=== PATIENT | female | born 1955 | race African-American/Black ===

== ENCOUNTER 2021-12-15 09:27 | Emergency (ER) | payer OTHER ==
[~2021-12-15] VITALS: Ht 160 cm; Wt 111.3 kg
[2021-12-15 10:32] LABS: Basophils # (auto) 0.1 10 ^3/uL (0-0.2); Basophils % (auto) 1.1 % (0.0-2.0); Eosinophils # (auto) 0.4 10 ^3/uL (0-0.8); Eosinophils % (auto) 5.7 % (0.0-7.0); Hematocrit 38.5 % (36.0-46.0); Hemoglobin 12.5 g/dL (12.2-16.2); Lymphocytes % (auto) 30.4 % (10.0-50.0); Mean Corpuscular Hemoglobin 28.6 pg (28.0-32.0); Mean Corpuscular Hgb Conc. 32.5 g/dL (32.0-36.0); Mean Corpuscular Volume 87.9 fL (80.0-100.0); Monocytes # (auto) 0.4 10 ^3/uL (0-1.3); Monocytes % (auto) 6.6 % (0.0-12.0); Neutrophils # (auto) 3.7 10 ^3/uL (1.6-8.6); Neutrophils % (auto) 56.2 % (37.0-80.0); Nucleated Red Blood Cells % 0.1 %; Red Blood Cells 4.38 10^6/uL (4.0-5.20); White Blood Cell 6.7 10^3/uL (4.4-10.8)
[2021-12-15 10:54] LABS: Albumin 3.8 g/dL (3.4-5.0); Calcium 9.6 mg/dL (8.5-10.1); Potassium 4.4 mmol/L (3.5-5.1)
[2021-12-15 10:58] LABS: BUN/Creatinine Ratio 14.5; Bilirubin, Total 0.5 mg/dL (0.2-1.0); Total Protein 7.4 g/dL (6.4-8.2)
[2021-12-15 12:38] LABS: Amphetamine Screen, Urine NEGATIVE (NEGATIVE); Barbiturate Scree,Urine NEGATIVE (NEGATIVE); Benzodiazephine Screen, Urine NEGATIVE (NEGATIVE); Cannabinoid Screen, Urine NEGATIVE (NEGATIVE); Cocaine Screen, Urine NEGATIVE (NEGATIVE); Phencyclidine Screen, Urine NEGATIVE (NEGATIVE)
[2021-12-15 12:47] LABS: Opiate Scree,Urine POSITIVE (NEGATIVE)
[2021-12-15 13:00] LABS: Urine Bacteria NONE SEEN /hpf (None Seen); Urine Blood Negative /uL (Negative); Urine Hyaline Cast FEW /lpf (0 - 2); Urine Specific Gravity 1.031 (1.001-1.035); Urine WBC 2 /hpf (0 - 5)
[2021-12-15 16:13] VITALS: BP 143/75
== END 2021-12-15 16:17 | disposition home or self-care (01) ==
LOC: ER 09:27
DX: R10.84 Generalized abdominal pain (principal); R55 Syncope and collapse; I10 Essential (primary) hypertension; E11.9 Type 2 diabetes mellitus without complications; Z88.8 Allergy status to other drugs, medicaments and biological substances
CPT/HCPCS: 36415; 70450; 74176; 80053; 80307; 81001; 83690; 85025; 93005

== ENCOUNTER 2024-03-21 05:37 | Inpatient (IN) | payer OTHER ==
[~2024-03-21] VITALS: Ht 170.2 cm; Wt 177.1 kg
--- NOTE | 2024-03-21 06:29 | ED.PDOC ---
Musculoskeletal HPI Comments 68 year old female ERICA presents to the ED with chief complaint of right leg pain and swelling. Patient reports that at around 12am, she begun to experiencing right leg swelling and pain. Patient relays that her right leg is noticeably more swollen than her left leg. Patient states she is normally able to walk on her own with a cane, but with the swelling and pain she is now unable to. Patient denies any numbness, weakness, fever, chills, chest pain, or SOB. Chief Complaint: Lower Extremity Time Seen by MD: 06:24 Primary Care Provider: Joy Bartholomew Notes: Nurses Notes, Assessor Notes, Medications, Allergies Allergies: Coded Allergies: Acetaminophen (Verified Allergy, Unknown, 12/15/21) CI Pigment Blue 63 (Verified Allergy, Unknown, 12/15/21) Carbamazepine (Verified Allergy, Unknown, 12/15/21) Duloxetine (Verified Allergy, Unknown, 12/15/21) Hydrocodone (Verified Allergy, Unknown, 12/15/21) Information Source: Patient, Emergency Med Personnel Mode of Arrival: EMS Location: Right Extremity Location: Leg Timing: Hours Prehospital treatment: None Severity: Moderate Able to Move Extremity: Yes Bear Weight: No Pain: Moderate Mechanism: Spontaneous Circumstances: Spontaneous Onset of Symptoms: Spontaneous Symptoms: Swelling, Pain DVT Risk Factors: NONE Last Tetanus: Unknown Past Medical History PAST MEDICAL HISTORY: DM, HTN Surgical History (Other): Nerve stimulator implant EMERGENCY MANAGEMENT DIRECTOR History: No Pertinent EMERGENCY MANAGEMENT DIRECTOR History Family History Family History: Reviewed,noncontributory to illness Social History Smoker: Non-Smoker Alcohol: Denies ETOH Use Drugs: Denies Drug Use Lives In: Home Constitutional: denies: chills, diaphoresis, fatigue, fever, malaise, sweats, weakness, others EENTM: denies: blurred vision, double vision, ear bleeding, ear discharge, ear drainage, ear pain, ear ringing, eye pain, eye redness, hearing loss, mouth pain, mouth swelling, nasal discharge, nose bleeding, nose congestion, nose pain, photophobia, tearing, throat pain, throat swelling, voice changes, others Respiratory: denies: cough, hemoptysis, orthopnea, SOB at rest, shortness of breath, SOB with excertion, stridor, wheezing, others Cardiovascular: reports: edema (Rt leg); denies: chest pain, dizzy spells, diaphoresis, Dyspnea on exertion, irregular heart beat, left arm pain, lightheadedness, palpitations, PND, syncope, others Gastrointestinal: denies: abdomen distended, abdominal pain, blood streaked bowels, constipated, diarrhea, dysphagia, difficulty swallowing, hematemesis, melena, nausea, poor appetite, poor fluid intake, rectal bleeding, rectal pain, vomiting, others Genitourinary: denies: abnormal vagina bleeding, burning, dyspareunia, dysuria, flank pain, frequency, hematuria, incontinence, pain, , vagina discharge, urgency, others Neurological: denies: dizziness, fainting, headache, left sided numbness, left sided weakness, numbness, paresthesia, pre-existing deficit, right sided numb ness, right sided weakness, seizure, speech problems, tingling, tremors, weakness, others Musculoskeletal: reports: others (Rt leg pain); denies: back pain, gout, joint pain, joint swelling, muscle pain, muscle stiffness, neck pain Integumetry: denies: bruises, change in color, change in hair/nails, dryness, laceration, lesions, lumps, rash, wounds, others Allergic/Immunocompromised: denies: Difficulty Healing, Frequent Infections, Hives, Itching, others Hematologic/Lymphatic: denies: anemia, blood clots, easy bleeding, easy bruising, swollen glands, others Endocrine: denies: excessive hunger, excessive sweating, excessive thirst, excessive urination, flushing, intolerance to cold, intolerance to heat, unexplained weight gain, unexplained weight loss, others Psychiatric: denies: anxiety, bipolar disorder, depression, hopeless, panic disorder, schizophrenia, sleepless, suicidal, others All Other Systems: Reviewed and Negative Physical Exam General Appearance: Moderate Distress, Normal HEENT: Normal ENT Inspection, PERRL/EOMI Neck: Full Range of Motion, Non-Tender, Normal, Normal Inspection Respiratory: Chest Non-Tender, Lungs Clear, No Accessory Muscle Use, No Respiratory Distress, Normal Breath Sounds Cardiovascular: No Edema, No JVD, No Murmur, No Gallop, Normal Peripheral Pulses, Regular Rate/Rhythm Breast Exam: Deferred Gastrointestinal: No Organomegaly, Non Tender, No Pulsatile Mass, Normal Bowel Sounds, Soft Genitalia: Deferred Pelvic: Deferred Rectal: Deferred Extremities: No calf tenderness, Normal capillary refill, Normal range of motion, Non-tender, Swelling (Right lower extremity) Musculoskeletal : Apperance: Normal Neurologic: Alert, silk screen printer machine II-XII nml as Tested, No Motor Deficits, Normal Affect, Normal Mood, No Sensory Deficits Cerebellar Function: NOT DONE Reflexes: NOT DONE Skin: Dry, Normal Color, Warm Peripheral Pulses: 3+ Radial (R), 3+ Radial (L) Lymphatic: No Adenopathy Was a procedure done? Was a procedure done?: No Differential Diagnosis EXT Differential Diagnosis: Deep Vein Thrombosis, Strain X-Ray, Labs, Meds, VS Vital Signs Date Time Temp Pulse Resp B/P (MAP) Pulse Ox O2 Delivery O2 Flow Rate FiO2 03/21/24 07:47 97.6 96 18 138/82 (100) 95 97.6 03/21/24 07:47 96 18 95 Room Air 03/21/24 05:37 98.4 97 16 156/82 (106) 94 Lab Test 03/21/24 06:27 Range/Units White Blood Count 5.6 4.4-10.8 10^3/uL Red Blood Count 4.08 4.0-5.20 10^6/uL Hemoglobin 12.6 12.2-16.2 g/dL Hematocrit 37.6 36.0-46.0 % Mean Corpuscular Volume 92.2 80.0-100.0 fL Mean Corpuscular Hemoglobin 30.9 28.0-32.0 pg Mean Corpuscular Hemoglobin Concent 33.5 32.0-36.0 g/dL Red Cell Distribution Width 14.8 H 11.8-14.3 % Platelet Count 206 140-450 10^3/uL Mean Platelet Volume 10.1 6.9-10.8 fL Neutrophils (%) (Auto) 59.2 37.0-80.0 % Lymphocytes (%) (Auto) 29.6 10.0-50.0 % Monocytes (%) (Auto) 8.0 0.0-12.0 % Eosinophils (%) (Auto) 2.6 0.0-7.0 % Basophils (%) (Auto) 0.6 0.0-2.0 % Neutrophils # (Auto) 3.3 1.6-8.6 10 ^3/uL Lymphocytes # (Auto) 1.7 0.4-5.4 10 ^3/uL Monocytes # (Auto) 0.5 0-1.3 10 ^3/uL Eosinophils # (Auto) 0.1 0-0.8 10 ^3/uL Basophils # (Auto) 0 0-0.2 10 ^3/uL Nucleated Red Blood Cells 0.0 % Sodium Level 139 136-145 mmol/L Potassium Level 4.5 3.5-5.1 mmol/L Chloride Level 104 98-107 mmol/L Carbon Dioxide Level 30 20-31 mmol/L Anion Gap 5 5-15 Blood Urea Nitrogen 12 9-23 mg/dL Creatinine 1.36 H 0.550-1.02 mg/dL Glomerular Filtration Rate Calc 42 >90 mL/min BUN/Creatinine Ratio 8.8 L 10.0-20.0 Serum Glucose 142 H 74-106 mg/dL Calcium Level 10.6 H 8.7-10.4 mg/dL Patient alert. Complaining of right lower extremity swelling. She does use a walker to assist her walking. Vitals stable. Blood pressure slightly elevated. Reviewed her previous visit. Explained to the patient. Continue cardiac monitoring. Rt Lower Ext US: FINDINGS: Right: - Common femoral vein: Compressible - Deep femoral vein: Compressible - Femoral vein: Compressible - Popliteal vein: Compressible - Posterior tibial vein: Waveforms present - Other: Nothing IMPRESSION: No right lower extremity deep venous thrombosis. Images Reviewed?: Images reviewed and evaluated by me Time of 1ST Reevaluation: 07:24 Reevaluation 1ST: Unchanged Patient Education/Counseling: Diagnosis, Treatment Family Education/Counseling: No Family Present Additional Information The following tests were ordered, and results were reviewed by me: BMP, UA, CBC, Rt Lower DVT US I reviewed and agreed with the following test results read by other providers: Rt Lower DVT US I discussed treatment and results with medical personnel. Departure 1 Departure Time of Disposition: 06:58 Impression: Primary Impression: Hypertension Qualified Codes: I10 - Essential (primary) hypertension Disposition: ADMITTED INPATIENT Admit to: Med Surg Condition: Guarded Critical Care Note Critical Care Time?: No Stability Stability form required: No Heart Score Heart Score: Heart Score Response (Comments) Value History N/A 0 EKG N/A 0 Age N/A 0 Risk Factors N/A 0 Troponin N/A 0 Total 0 I personally scribed for ROXANN JEAN-BAPTISTE MD ([email or web address]) on 03/21/24 at 06:29. Electronically submitted by Michael Holbrook ([email or web address]). I personally scribed for ROXANN JEAN-BAPTISTE MD ([email or web address]) on 03/21/24 at 07:20. Electronically submitted by Michael Holbrook ([email or web address]). I personally scribed for ROXANN JEAN-BAPTISTE MD ([email or web address]) on 03/21/24 at 08:58. Electronically submitted by Michael Holbrook ([email or web address]). ROXANN JEAN-BAPTISTE MD Mar 21, 2024 06:29
[2024-03-21 07:02] LABS: Chloride 104 mmol/L (98-107); Potassium 4.5 mmol/L (3.5-5.1); Sodium 139 mmol/L (136-145)
[2024-03-21 07:03] LABS: Anion Gap 5 (5-15); Carbon Dioxide 30 mmol/L (20-31)
[2024-03-21 07:04] LABS: Basophils # (auto) 0 10 ^3/uL (0-0.2); Basophils % (auto) 0.6 % (0.0-2.0); Eosinophils # (auto) 0.1 10 ^3/uL (0-0.8); Eosinophils % (auto) 2.6 % (0.0-7.0); Hematocrit 37.6 % (36.0-46.0); Hemoglobin 12.6 g/dL (12.2-16.2); Lymphocytes # (auto) 1.7 10 ^3/uL (0.4-5.4); Lymphocytes % (auto) 29.6 % (10.0-50.0); Mean Corpuscular Hemoglobin 30.9 pg (28.0-32.0); Mean Corpuscular Hgb Conc. 33.5 g/dL (32.0-36.0); Mean Corpuscular Volume 92.2 fL (80.0-100.0); Monocytes # (auto) 0.5 10 ^3/uL (0-1.3); Neutrophils # (auto) 3.3 10 ^3/uL (1.6-8.6); Neutrophils % (auto) 59.2 % (37.0-80.0); Platelet Count (auto) 206 10^3/uL (140-450); Red Blood Cells 4.08 10^6/uL (4.0-5.20); Red Cell Distribution Width 14.8 % (11.8-14.3); White Blood Cell 5.6 10^3/uL (4.4-10.8)
[2024-03-21 07:08] LABS: BUN/Creatinine Ratio 8.8 (10.0-20.0); Blood Urea Nitrogen 12 mg/dL (9-23)
[2024-03-21 07:12] LABS: Calcium 10.6 mg/dL (8.7-10.4); Glucose 142 mg/dL (74-106)
--- NOTE | 2024-03-21 08:40 | DVH ---
US RT Lower DVT HISTORY: dvct COMPARISON: None TECHNIQUE: Duplex doppler evaluation of the deep venous system of the lower extremity from the common femoral veins, superficial femoral vein, great saphenous vein, deep femoral vein, popliteal vein, an d calf veins, including color doppler and spectral/pulsed waveform analysis, was performed. FINDINGS: Right: - Common femoral vein: Compressible - Deep femoral vein: Compressible - Femoral vein: Compressible - Popliteal vein: Compressible - Posterior tibial vein: Waveforms present - Other: Nothing IMPRESSION: No right lower extremity deep venous thrombosis.
[2024-03-21 09:58] LABS: Urine Bacteria None Seen /hpf (None Seen)
[2024-03-21 10:37] LABS: Urine Blood Negative /uL (Negative); Urine Clarity Clear (Clear); Urine Color Colorless (Yellow); Urine Protein, UAD Negative (Negative); Urine Specific Gravity 1.006 (1.001-1.035); Urine Squamous Epithelial Cell FEW /hpf (<5); Urine Urobilinogen Normal (Negative); Urine WBC 1 /hpf (0 - 5)
--- NOTE | 2024-03-21 13:33 | DVHHP2 ---
History of Present Illness Reason for Visit: Pain on right calf and right foot History of Present Illness Linda Mancini is a 68-year-old female with past medical history of hypertension, diabetes, asthma, COPD, abdominal surgery, neck fusion, lumbar surgery, nerve stimulator implant, bilateral knee surgery greater than 15 years ago, and liver hemangioma over 25 lb that was removed per patient who presents to the ED for right lower extremity swelling, right calf and right foot pain x1 day. Patient reports that the pain is sharp constant and about a 5 to 7/10. Patient states that she was sitting at the dining room table and felt a bite on her right leg but was not sure and states that around 12:00 a.m. this morning she woke up with right lower extremity swelling and right leg pain. She reports that she notice to pick morrow on both her right leg 1 her on her ankle and 1 on her knee. She states that she swatted a bug at the dining room table that evening but was unsure what it was. Patient reports that when she walks and when she relaxes or sits down the pain is still there present, there is no relief with ambulation or rest. With palpation to her right calf and right foot noticeable pain present. Patient reports that she uses a cane for with ambulation. She also states that she is compliant with her medications. Patient denies chest pain, shortness of breath, fever, chills, weakness, dizziness, lightheadedness, nausea, vomiting, and diarrhea. Cardiovascular: HTN Pulmonary: Asthma, COPD Endocrine: Diabetes Past Surgical History: Other Past Surgical History Nerve stimulator implant lower back, bilateral knee surgery greater than 15 years ago, abdominal surgery, neck fusion, and lumbar surgery Family History: DM, Other (Sister) Smoke: No ALCOHOL: none Drugs: None Lives: Alone Domestic Violence: Neg Review of Systems Constitutional: No: Fever, Chills, Sweats, Weakness, Malaise, Other Eyes: No: Pain, Vision change, Conjunctivae inflammation, Eyelid inflammation, Other, Redness ENT: No: Ear pain, Ear discharge, Nose pain, Nose discharge, Nose congestion, Mouth pain, Mouth swelling, Throat pain, Throat swelling, Other Respiratory: No: Cough, Dry, Shortness of breath, SOB with excertion, Wheezing, Hemoptysis, Pleuritic Pain, Sputum, Wheezing, Other Cardiovascular: No: Chest Pain, Palpitations, Orthopnea, Paroxysmal Noc. Dyspnea, Edema, Lt Headedness, Other Gastrointestinal: No: Nausea, Vomiting, Abdominal Pain, Diarrhea, Constipation, Melena, Hematochezia, Other Genitourinary: No Dysuria, No Frequency, No Incontinence, No Hematuria, No Retention, No Other Musculoskeletal: leg pain, foot pain; No: other, neck pain, shoulder pain, arm pain, back pain, hand pain Skin: Other (2 noticeable birthmarks on right anterior knee and another on the left medial ankle); No: Rash, Lesions, Jaundice, Bruising Neurological: No: Weakness, Numbness, Incoordination, Change in speech, Confusion, Seizures, Other Allergies: Coded Allergies: FD&C Blue #2 (Indigotine) (Verified Allergy, Unknown, 12/15/21) Exam Vital Signs Vital Signs Date Time Temp Pulse Resp B/P (MAP) Pulse Ox O2 Delivery O2 Flow Rate FiO2 03/21/24 12:29 91 16 137/68 (91) 98 03/21/24 10:31 97.6 97.6 03/21/24 07:47 Room Air General Appearance: Alert, Oriented X3, Cooperative, No acute distress HEENT: Atraumatic, PERRLA, EOMI, Mucous membr. moist/pink Respiratory: Clear to auscultation, Normal air movement Cardiovascular: Regular rate, Normal S1, Normal S2, No murmurs Abdominal: Normal bowel sounds, Soft, No tenderness, No hepatospenomegaly, No masses Extremities: No clubbing, No cyanosis, Normal pulses Skin: No rashes, No breakdown, No significant lesion Neuro: Normal gait, Normal speech, Strength at 5/5 X4 ext, Normal tone, Sensation intact Psych/Mental Status: Mental status NL, Mood NL Labs/Xrays Labs Test 03/21/24 07:46 03/21/24 06:27 Range/Units Urine Color Colorless Yellow Urine Clarity Clear Clear Urine pH 7.0 5.0-9.0 Urine Specific [place] 1.006 1.001-1.035 Urine Protein Negative Negative Urine Ketones Negative Negative Urine Blood Negative Negative /uL Urine Nitrite Negative Negative Urine Bilirubin Negative Negative Urine Urobilinogen Normal Negative mg/dL Urine Leukocyte Esterase Negative Negative /uL Urine RBC 1 0 - 4 /hpf Urine WBC 1 0 - 5 /hpf Urine Squamous Epithelial Cells Few <5 /hpf Urine Bacteria None seen None Seen /hpf Urine Glucose Normal Normal mg/dL White Blood Count 5.6 4.4-10.8 10^3/uL Red Blood Count 4.08 4.0-5.20 10^6/uL Hemoglobin 12.6 12.2-16.2 g/dL Hematocrit 37.6 36.0-46.0 % Mean Corpuscular Volume 92.2 80.0-100.0 fL Mean Corpuscular Hemoglobin 30.9 28.0-32.0 pg Mean Corpuscular Hemoglobin Concent 33.5 32.0-36.0 g/dL Red Cell Distribution Width 14.8 H 11.8-14.3 % Platelet Count 206 140-450 10^3/uL Mean Platelet Volume 10.1 6.9-10.8 fL Neutrophils (%) (Auto) 59.2 37.0-80.0 % Lymphocytes (%) (Auto) 29.6 10.0-50.0 % Monocytes (%) (Auto) 8.0 0.0-12.0 % Eosinophils (%) (Auto) 2.6 0.0-7.0 % Basophils (%) (Auto) 0.6 0.0-2.0 % Neutrophils # (Auto) 3.3 1.6-8.6 10 ^3/uL Lymphocytes # (Auto) 1.7 0.4-5.4 10 ^3/uL Monocytes # (Auto) 0.5 0-1.3 10 ^3/uL Eosinophils # (Auto) 0.1 0-0.8 10 ^3/uL Basophils # (Auto) 0 0-0.2 10 ^3/uL Nucleated Red Blood Cells 0.0 % Sodium Level 139 136-145 mmol/L Potassium Level 4.5 3.5-5.1 mmol/L Chloride Level 104 98-107 mmol/L Carbon Dioxide Level 30 20-31 mmol/L Anion Gap 5 5-15 Blood Urea Nitrogen 12 9-23 mg/dL Creatinine 1.36 H 0.550-1.02 mg/dL Glomerular Filtration Rate Calc 42 >90 mL/min BUN/Creatinine Ratio 8.8 L 10.0-20.0 Serum Glucose 142 H 74-106 mg/dL Calcium Level 10.6 H 8.7-10.4 mg/dL US RT Lower DVT HISTORY: dvct COMPARISON: None TECHNIQUE: Duplex doppler evaluation of the deep venous system of the lower extremity from the common femoral veins, superficial femoral vein, great saphenous vein, deep femoral vein, popliteal vein, and calf veins, including color doppler and spectral/pulsed waveform analysis, was performed. FINDINGS: Right: - Common femoral vein: Compressible - Deep femoral vein: Compressible - Femoral vein: Compressible - Popliteal vein: Compressible - Posterior tibial vein: Waveforms present - Other: Nothing IMPRESSION: No right lower extremity deep venous thrombosis. Lower Extremity Arterial Duplex Date: 03/21/2024 01:36 PM Clinical History: r/o pad Comparison: None Findings: Duplex Doppler evaluation including color Doppler and spectral/pulsed waveform analysis of the lower extremity arteries was performed. RIGHT: Velocities and waveforms within normal limits. REFERENCE VALUES, [facility]) vascular Imaging Lab Criteria: Peak systolic velocity ranges (in cm/sec) are as follows: <150 cm/s - <20 % stenosis 150-200 cm/s - 20-49% stenosis 200-300 cm/s - 50-75% stenosis >300 cm/s -> 75% stenosis IMPRESSION: There is no evidence for peripheral vascular insufficiency in the right lower extremity. There is no evidence for peripheral vascular insufficiency in the left lower extremity. No significant focal stenosis is identified. Assessment/Plan Assessment/Plan Assessment/Plan: R/O PAD Essential HTN labs ua US DVT Antiemetics Pain management A.m. labs arterial duplex ISIS TERESITA on CKD 3 IVf HTN continue home meds DM HgbA1C 7.5% ISS and accuchecks Asthma COPD resp txs continue home meds FEN/PPX Diet IV fluids DVT prophylaxis not indicated patient ambulating PUD prophylaxis - omeprazole home med Admit patient to med surge Discussed plan of care with nurse and patient Home medications reconciled Plan discussed with: Patient My Orders Orders - NADJA CHAUDHRY Procedure Category Date Status Time Vasc Arterial Isis US 03/21/24 Verified Complete 13:18 Date of Service: Mar 21, 2024 Billing Provider: NADJA CHAUDHRY Common Visit Codes: [id number] INP/OBS CARE (MOD) NADJA CHAUDHRY Mar 21, 2024 13:32
[2024-03-21] MEDS ORDERED: MAGN500T17 PO (13:35)
[2024-03-21] MEDS ORDERED: BUSP5TAB51 PO (13:35)
[2024-03-21] MEDS ORDERED: ACET-6 PO (13:35)
[2024-03-21] MEDS ORDERED: ATOR20TA50 PO (13:35)
[2024-03-21] MEDS ORDERED: LISI-283 PO (13:35)
[2024-03-21] MEDS ORDERED: PREG150C63 PO (13:35)
[2024-03-21] MEDS ORDERED: BUDE0.5S NEB (13:35)
[2024-03-21] MEDS ORDERED: OMEP1CAP70 PO (13:35)
[2024-03-21] MEDS ORDERED: ASPI-325 PO (13:35)
[2024-03-21] MEDS ORDERED: MONT-8 PO (13:35)
[2024-03-21] MEDS ORDERED: CYCL-611 PO (13:35)
[2024-03-21] MEDS ORDERED: ACETAMINOPHEN 325 MG TAB PO PRN (13:45)
[2024-03-21] MEDS ORDERED: MORPHINE SULFATE INJ 2 MG/ml SYRG IV PRN (13:45)
[2024-03-21] MEDS ORDERED: ONDANSETRON HCL 4 MG/2 ML VIAL IV PRN (13:45)
[2024-03-21] MEDS ORDERED: DEXTROSE (50%) 50ML SYRG IV PRN (13:45)
[2024-03-21 14:04] VITALS: BP 137/68; PULSE 91; RESP 16; O2SAT 98
[2024-03-21] MEDS: SODIUM CHLORIDE 0.9% 1,000 ML IV SCH (14:12)
--- NOTE | 2024-03-21 14:26 | DVH ---
Lower Extremity Arterial Duplex Date: 03/21/2024 01:36 PM Clinical History: r/o pad Comparison: None Findings: Duplex Doppler evaluation including color Doppler and spectral/pulsed waveform analysis of the lower extremity arteries was performed. RIGHT: Velocities and waveforms within normal limits. REFERENCE VALUES, [facility] vascular Imaging Lab Criteria: Peak systolic velocity ranges (in cm/sec) are as follows: <150 cm/s - <20 % stenosis 150-200 cm/s - 20-49% stenosis 200-300 cm/s - 50-75% stenosis >300 cm/s -> 75% stenosis IMPRESSION: There is no evidence for peripheral vascular insufficiency in the right lower extremity. There is no evidence for peripheral vascular insufficiency in the left lower extremity. No significant focal stenosis is identified. END IMPRESSION:
[2024-03-21 16:24] VITALS: PULSE 20; RESP 18; O2SAT 96
[2024-03-21] MEDS: InsuLIN REG 1unit/0.01ml Soln (100units/ml) SC SCH (18:11)
[2024-03-21] MEDS: ACCU-CHEK COMFORT CURVE STRIP VI SCH (18:11)
[2024-03-21 20:00] VITALS: RESP 18; O2SAT 94
[2024-03-21 20:04] VITALS: PULSE 103; RESP 18; O2SAT 96
[2024-03-21] MEDS: ALBUTEROL SULF 2.5 MG/0.5ML(0.5%) NEB SOLN NEB PRN (20:04)
[2024-03-21] MEDS: IPRATROPIUM BROM 0.5 MG/2.5ML INH SOL NEB PRN (20:04)
[2024-03-21 20:12] VITALS: PULSE 98; RESP 18; O2SAT 100
[2024-03-21 21:00] VITALS: BP 136/72; PULSE 103; RESP 17; TEMP 97.9; O2SAT 92
[2024-03-21] MEDS: HYDROcodone-ACET 5/325MG TAB PO PRN (22:00)
[2024-03-22] VITALS (11 sets, daily range): BP systolic 133–150; BP diastolic 61–87; PULSE 81–98; RESP 17–20; TEMP 97.6–98.7; O2SAT 93–100
[2024-03-22] MEDS: PREGABALIN CAPSULE 75 MG CAP PO SCH (09:18)
[2024-03-22 11:49] LABS: Basophils # (auto) 0.1 10 ^3/uL (0-0.2); Basophils % (auto) 0.9 % (0.0-2.0); Eosinophils # (auto) 0.1 10 ^3/uL (0-0.8); Eosinophils % (auto) 2.2 % (0.0-7.0); Hemoglobin 11.6 g/dL (12.2-16.2); Lymphocytes % (auto) 34.6 % (10.0-50.0); Mean Corpuscular Hemoglobin 30.5 pg (28.0-32.0); Mean Corpuscular Hgb Conc. 33.3 g/dL (32.0-36.0); Mean Corpuscular Volume 91.5 fL (80.0-100.0); Monocytes # (auto) 0.5 10 ^3/uL (0-1.3); Monocytes % (auto) 8.2 % (0.0-12.0); Neutrophils # (auto) 3.1 10 ^3/uL (1.6-8.6); Neutrophils % (auto) 54.1 % (37.0-80.0); Nucleated Red Blood Cells % 0.2 %; Platelet Count (auto) 186 10^3/uL (140-450); Red Blood Cells 3.82 10^6/uL (4.0-5.20); Red Cell Distribution Width 14.7 % (11.8-14.3); White Blood Cell 5.7 10^3/uL (4.4-10.8)
[2024-03-22 11:54] LABS: Anion Gap 7 (5-15)
[2024-03-22 12:05] LABS: BUN/Creatinine Ratio 9.2 (10.0-20.0)
[2024-03-22 12:06] LABS: Calcium 10.2 mg/dL (8.7-10.4); Carbon Dioxide 28 mmol/L (20-31); Chloride 107 mmol/L (98-107); Glucose 151 mg/dL (74-106); Sodium 142 mmol/L (136-145)
[2024-03-22 12:07] LABS: Alkaline Phosphatase 143 U/L (46-116); Aspartate Aminotransferase 25 U/L (13-40); Blood Urea Nitrogen 10 mg/dL (9-23); Potassium 3.8 mmol/L (3.5-5.1)
[2024-03-22 12:08] LABS: Alanine Aminotransferase 18 U/L (7-40); Albumin 3.8 g/dL (3.2-4.8); Bilirubin, Total 0.4 mg/dL (0.2-1.0); Total Protein 6.7 g/dL (5.7-8.2)
[2024-03-22] MEDS: hydroCHLOROthiazide 25 MG TAB PO SCH (12:42)
[2024-03-22] MEDS: LISINOPRIL 5 MG TAB PO SCH (12:43)
--- NOTE | 2024-03-22 12:51 | DVHSR ---
APPROVED REPORT EXAM: Two-dimensional and M-mode echocardiogram with Doppler and color Doppler. Blood Pressure: 147/74 mmHg INDICATION LE swelling RISK FACTORS Height: 63, Weight: 255 DIMENSIONS LVDd4.3 (3.8-5.7cm)LA (2D)3.5 (1.9-4.0cm)Aortic Root3.4 (2.0-3.7cm) LVDs3.0 (2.5-4.0cm)LA (MM) (1.9-4.0cm)Aortic Cusp Exc1.7 (1.5-2.0cm) EF (%) 56.0 (55-70%)Rt. Atrium3.9 (1.9-4.0cm)Asc. Aorta cm Mitral Valve MitralMitral Stenosis E wave0.68m/sMV Mean GR.mmHg A wave1.14m/sMV Peak GR.mmHg E/A ratio0.62D MVAcm2 DECEL [id number] 1/2 Timems Aortic Valve Aortic ValveAortic Stenosis V11.17m/Kanika Mean GR.5mmHg V21.64m/Kanika Peak GR.11mmHg LVOT Diameter2.3 (1.8-2.4cm)Doppler AVA2.96cm2 Pulmonic Valve V20.96m/s Tricuspid Valve TR Velocity2.18m/s [id number] Conclusion MILD LVH AND MILD LV DIASTOLIC DYSFUNCTION LV EJECTION FRACTION IS 65% NORMAL VALVES NO EFFUSION NORMAL RV FUNCTION RVSP IS 23 MM OF HG AND IS NORMAL
[2024-03-22] MEDS: MONTELUKAST SODIUM 10 MG TAB PO SCH (21:23)
--- NOTE | 2024-03-22 22:15 | DVHPN2 ---
Subjective The patient is seen and examined at bedside. The patient talk to me regarding to the bite that she had that cause her right leg swollen. Reviewed: Care Plan, H&P, Labs, Medications, Previous Orders, Radiology Changes from previous H/P or p: No Changes Eyes: No Pain, No Vision change, No Conjunctivae inflammation, No Eyelid inflammation, No Other, No Redness ENT: No Ear pain, No Ear discharge, No Nose pain, No Nose discharge, No Nose congestion, No Mouth pain, No Mouth swelling, No Throat pain, No Throat swelling, No Other Cardiovascular: No Chest Pain, No Palpitations, No Orthopnea, No Paroxysmal Noc. Dyspnea, No Edema, No Lt Headedness, No Other Respiratory: No Cough, No Dry, No Shortness of breath, No SOB with excertion, No Wheezing, No Hemoptysis, No Pleuritic Pain, No Sputum, No Other Gastrointestinal: No Nausea, No Vomiting, No Abdominal Pain, No Diarrhea, No Constipation, No Melena, No Hematochezia, No Other Genitourinary: No Dysuria, No Frequency, No Incontinence, No Hematuria, No Retention, No Other Musculoskeletal: No other, No neck pain, No shoulder pain, No arm pain, No back pain, No hand pain; leg pain, foot pain Skin: No Rash, No Lesions, No Jaundice, No Bruising; Other (2 noticeable birthmarks on right anterior knee and another on the left medial ankle) Objective Vitals Vital Signs Date Time Temp Pulse Resp B/P (MAP) Pulse Ox O2 Delivery O2 Flow Rate FiO2 03/22/24 20:00 88 18 97 Nasal Cannula* 2 28 03/22/24 17:00 98.7 144/61 (88) 98.7 Intake/Output Intake and Output 03/22/24 07:00 Intake Total 380 ml Balance 380 ml Intake Oral 380 ml # Voids 2 General Appearance: Alert, Oriented X3, Cooperative, No acute distress HEENT: Atraumatic, PERRLA, EOMI, Mucous membr. moist/pink Neck: Supple Lungs: Clear to auscultation, Normal air movement Cardiovascular: Regular rate, Normal S1, Normal S2, No murmurs, Gallops, Rubs Abdomen: Normal bowel sounds, Soft, No tenderness Neuro: Cranial nerves 3-12 NL Psych/Mental Status: Mental status NL Medications Current Medications Medications Dose Ordered Sig/Jaime Route Start Time Stop Time Status Last Admin Dose Admin Acetaminophen/ Hydrocodone Bitart 1 tab Q4HP PRN PO 03/21/24 13:45 03/22/24 15:36 1 TAB Ondansetron HCl 4 mg Q4HP PRN IV 03/21/24 13:45 Acetaminophen 650 mg Q6HP PRN PO 03/21/24 13:45 Morphine Sulfate 2 mg Q4HPRN PRN IV 03/21/24 13:45 Sodium Chloride 1,000 ml @ 75 mls/hr [id number] IV 03/21/24 13:45 03/22/24 16:25 75 MLS/HR Diagnostic Test (Pha) 1 strip ACHS 03/21/24 17:00 03/22/24 17:18 1 STRIP Insulin Human Regular ACHS SC 03/21/24 17:00 03/22/24 17:19 150 UNITS Dextrose 50 ml UD PRN IV 03/21/24 13:45 Albuterol 2.5 mg Q4HPRN PRN NEB 03/21/24 13:45 03/22/24 19:06 2.5 MG Ipratropium [place] 0.5 mg Q4HPRN PRN NEB 03/21/24 13:45 03/22/24 19:05 0.5 MG Pregabalin 150 mg BID PO 03/22/24 10:00 03/22/24 21:21 150 MG Montelukast Sodium 10 mg HS PO 03/22/24 22:00 03/22/24 21:23 10 MG Lisinopril 10 mg DAILY PO 03/22/24 13:00 03/22/24 12:43 10 MG Hydrochlorothiazide 25 mg DAILY PO 03/22/24 13:00 03/22/24 12:42 25 MG Laboratory Results Laboratory Tests 03/22/24 11:10 Chemistry Test 03/22/24 11:10 Albumin 3.8 g/dL (3.2-4.8) Calcium Level 10.2 mg/dL (8.7-10.4) Total Protein 6.7 g/dL (5.7-8.2) LFT Test 03/22/24 11:10 Alanine Aminotransferase (ALT) 18 U/L (7-40) Alkaline Phosphatase 143 U/L (46-116) H Aspartate Amino Transferase (AST) 25 U/L (13-40) Total Bilirubin 0.4 mg/dL (0.2-1.0) Urinalysis Test 03/21/24 07:46 Urine Color Colorless (Yellow) Urine Clarity Clear (Clear) Urine pH 7.0 (5.0-9.0) Urine Specific [place] 1.006 (1.001-1.035) Urine Protein Negative (Negative) Urine Ketones Negative (Negative) Urine Blood Negative /uL (Negative) Urine Nitrite Negative (Negative) Urine Bilirubin Negative (Negative) Urine Urobilinogen Normal mg/dL (Negative) Urine Leukocyte Esterase Negative /uL (Negative) Urine RBC 1 /hpf (0 - 4) Urine WBC 1 /hpf (0 - 5) Urine Squamous Epithelial Cells Few /hpf (<5) Urine Bacteria None seen /hpf (None Seen) Urine Glucose Normal mg/dL (Normal) Labs and/or images reviewed: Labs reviewed by me Assessment/Plan Assessment/Plan Right lower extremity edema, resolved Acute kidney injury superimposed chronic kidney disease COPD Diabetes type 2 controlled Plan: Continuing current management. Continuing with IV Lasix. I review her ultrasound of venous and artery which both is negative and normal. I also examined her legs and look at the bite that the patient has pointed to me. There is no erythema or swelling around the bite . No obvious site of insect bite. I explained to the patient I do not think this is the bite that cause her leg swelling. I am ordering the 2D echo to rule out congestive heart failure. Discharge planning. Plan discussed with: Patient My Orders Orders - ARIE GHOTRA MD Procedure Category Date Status Time Echo 2d Mode Cardiac US 03/22/24 Resulted DOP 09:55 Lisinopril Tablet PHA 03/22/24 In Process (Zestril Tablet) 13:00 Hydrochlorothiazide PHA 03/22/24 In Process Tablet (Hydrochlorot 13:00 Date of Service: Mar 22, 2024 Billing Provider: ARIE GHOTRA MD Common Visit Codes: [id number] INP/OBS CARE(HIGH) ARIE GHOTRA MD Mar 22, 2024 22:15
[2024-03-23] VITALS (9 sets, daily range): BP systolic 107–158; BP diastolic 42–89; PULSE 83–117; RESP 16–20; TEMP 97.6–98.2; O2SAT 95–100
[2024-03-23] MEDS: IPRATROPIUM BROM 0.5 MG/2.5ML INH SOL NEB SCH (07:21)
[2024-03-23] MEDS: ALBUTEROL SULF 2.5 MG/0.5ML(0.5%) NEB SOLN NEB SCH (07:21)
--- NOTE | 2024-03-23 11:25 | DVHDS2 ---
Discharge Summary Date of Admission Mar 21, 2024 at 13:36 Date of Discharge: Mar 23, 2024 Admitting Diagnosis Right lower extremity edema Acute kidney injury superimposed chronic kidney disease COPD Diabetes type 2 controlled Labs/Diagnostic Data: Laboratory Results Test 03/23/24 06:35 03/22/24 11:10 03/21/24 07:46 03/21/24 06:27 POC Glucose 122 mg/dl (70-106) White Blood Count 5.7 10^3/uL (4.4-10.8) Red Blood Count 3.82 10^6/uL (4.0-5.20) Hemoglobin 11.6 g/dL (12.2-16.2) Hematocrit 35.0 % (36.0-46.0) Mean Corpuscular Volume 91.5 fL (80.0-100.0) Mean Corpuscular Hemoglobin 30.5 pg (28.0-32.0) Mean Corpuscular Hemoglobin Concent 33.3 g/dL (32.0-36.0) Red Cell Distribution Width 14.7 % (11.8-14.3) Platelet Count 186 10^3/uL (140-450) Mean Platelet Volume 10.4 fL (6.9-10.8) Neutrophils (%) (Auto) 54.1 % (37.0-80.0) Lymphocytes (%) (Auto) 34.6 % (10.0-50.0) Monocytes (%) (Auto) 8.2 % (0.0-12.0) Eosinophils (%) (Auto) 2.2 % (0.0-7.0) Basophils (%) (Auto) 0.9 % (0.0-2.0) Neutrophils # (Auto) 3.1 10 ^3/uL (1.6-8.6) Lymphocytes # (Auto) 2.0 10 ^3/uL (0.4-5.4) Monocytes # (Auto) 0.5 10 ^3/uL (0-1.3) Eosinophils # (Auto) 0.1 10 ^3/uL (0-0.8) Basophils # (Auto) 0.1 10 ^3/uL (0-0.2) Nucleated Red Blood Cells 0.2 % Sodium Level 142 mmol/L (136-145) Potassium Level 3.8 mmol/L (3.5-5.1) Chloride Level 107 mmol/L (98-107) Carbon Dioxide Level 28 mmol/L (20-31) Anion Gap 7 (5-15) Blood Urea Nitrogen 10 mg/dL (9-23) Creatinine 1.09 mg/dL (0.550-1.02) Glomerular Filtration Rate Calc 55 mL/min (>90) BUN/Creatinine Ratio 9.2 (10.0-20.0) Serum Glucose 151 mg/dL (74-106) Calcium Level 10.2 mg/dL (8.7-10.4) Total Bilirubin 0.4 mg/dL (0.2-1.0) Aspartate Amino Transferase (AST) 25 U/L (13-40) Alanine Aminotransferase (ALT) 18 U/L (7-40) Alkaline Phosphatase 143 U/L (46-116) Total Protein 6.7 g/dL (5.7-8.2) Albumin 3.8 g/dL (3.2-4.8) Urine Color Colorless (Yellow) Urine Clarity Clear (Clear) Urine pH 7.0 (5.0-9.0) Urine Specific [place] 1.006 (1.001-1.035) Urine Protein Negative (Negative) Urine Ketones Negative (Negative) Urine Blood Negative /uL (Negative) Urine Nitrite Negative (Negative) Urine Bilirubin Negative (Negative) Urine Urobilinogen Normal mg/dL (Negative) Urine Leukocyte Esterase Negative /uL (Negative) Urine RBC 1 /hpf (0 - 4) Urine WBC 1 /hpf (0 - 5) Urine Squamous Epithelial Cells Few /hpf (<5) Urine Bacteria None seen /hpf (None Seen) Urine Glucose Normal mg/dL (Normal) Hemoglobin A1c 7.5 % A1C (<5.7) Other Laboratory Tests 03/22/24 11:10 Brief Hx & Hospital Course: This is a 68 years old female with past medical history of hypertension, diabetes, asthma, COPD, lumbar surgery, nerve stimulator implant, bilateral knee surgery and liver hemangioma come to emergency department because of right lower extremity edema. Patient said her cath in her foot swollen up and she had much pain. She think that some insect bite her in her leg got swollen. The patient was admitted. The patient was put on Lasix 40 mg IV daily. The patient edema improved. Patient also had ultrasound of venous in artery which showed normal artery system and also no stenosis or deep vein thrombosis. Echo showed: Mild LVH and mild LV did diastolic dysfunction. Left ventricle ejection fraction is 65%, normal valves, no effusions, normal more RV function. I also take a look of her legs and the area that she thought she got insect bite is not red. There is no evidence of bug bite. So I am discharge the patient home. Advised the patient to follow up with primary care physician 1-2 weeks. Activity as tolerated. Diet per home diet. Recommend low-salt low-cholesterol 2000 ADA calorie diet Physical exam: HEENT: Normocephalic atraumatic pupils equal react to light and accommodation. Extraocular muscles intact, conjunctiva pink, oropharynx moist, no thrush, no exudate. Lymphatic: No lymphadenopathy Cardiovascular exam: S1, S2 was heard. No murmurs, rubs, gallops Lung: Clear on auscultation bilaterally, no wheeze, rale, rhonchi. GI: Abdominal soft, nondistended, nontenderness, positive bowel sounds. Extremity: No crepitus, cyanosis, edema. Pedal pulses present bilateral. Full range of motion. Skin: Normal turgor, no rash. Psych: Alert, oriented x3. Neurology: No focal deficits, cranial nerve II to XII grossly intact. This medical document was created using an electronic medical record system with [employer] direct computerized dictation system. Although this document has been carefully reviewed, there may still be some phonetic and typographical errors. These areas are purely typographical due to imperfections of the software programs, and do not reflect any compromise in the patient's medical care. Condition at Discharge: Stable Final Diagnosis/Problems List Right lower extremity edema, resolved Acute kidney injury superimposed chronic kidney disease COPD Diabetes type 2 controlled Discharge Disposition: Home Discharge Instruct/Medications Diet: Cardiac 2g Na,low cholest Activity: No Restrictions, As Tolerated Follow Up/Referral: pcp 1-2 weeks Medications: Resume home meds Discharge Statement: "Patient was advised to return to the ER or call 911 if any headaches, dizziness, shortness of breath, chest pain, abdominal pain, bleeding, fevers, or worsening of medical condition. Patient was counseled about treatment plan, medications, possible side effects, patientverbalized understanding. All questions were answered to the best of my ability. This discharge took greater then 30 minutes in planning, reviewing documentation, counseling the patient, and discussing with other team members." ASSESSMENT ASSESSMENT Assessment Right LE edema Date of Service: Mar 23, 2024 Billing Provider: ARIE GHOTRA MD Common Visit Codes: 22689-[id number] INP/OBS CARE(HIGH) ARIE GHOTRA MD Mar 23, 2024 11:25
[2024-03-23] MEDS ORDERED: FURO1TAB33 PO (12:20)
== END 2024-03-23 14:35 | disposition home or self-care (01) | DRG 602 ==
LOC: EDBD 05:37 → ER 05:37 → OVERFLOW 13:36 → CENTRAL 16:27
PROVIDERS: ATTEND Internal Medicine
PROC: 5A09357 Assistance with Respiratory Ventilation, Less than 24 Consecutive Hours, Continuous Positive Airway Pressure (ICD-10-PCS; principal; 2024-03-21)
DX: L03.115 Cellulitis of right lower limb (principal); N17.0 Acute kidney failure with tubular necrosis; N18.30 Chronic kidney disease, stage 3 unspecified; I12.9 Hypertensive chronic kidney disease with stage 1 through stage 4 chronic kidney disease, or unspecified chronic kidney disease; J44.89 Other specified chronic obstructive pulmonary disease; E11.22 Type 2 diabetes mellitus with diabetic chronic kidney disease; J45.909 Unspecified asthma, uncomplicated; Z83.3 Family history of diabetes mellitus; Z98.1 Arthrodesis status; Z79.4 Long term (current) use of insulin; Z79.899 Other long term (current) drug therapy; Z88.8 Allergy status to other drugs, medicaments and biological substances
CPT/HCPCS: 36415; 80048; 80053; 81001; 82962; 83036; 85025; 93306; 93925; 93971; 94640; 94660; G0378; J1815